=== PATIENT | male | born 1965 | race Caucasian/White ===

== ENCOUNTER 2022-12-08 14:59 | Emergency (ER) | payer OTHER ==
[~2022-12-08] VITALS: Ht 172.7 cm; Wt 79.4 kg
[~2022-12-08 14:59] MED LIST: COZAAR50 MG; SYNTHROID75 MCG
== END 2022-12-08 19:01 | disposition home or self-care (01) ==
LOC: ER 14:59
DX: R55 Syncope and collapse (principal); R51.9 Headache, unspecified; E16.1 Other hypoglycemia; I10 Essential (primary) hypertension; Z20.822 Contact with and (suspected) exposure to COVID-19; Z91.013 Allergy to seafood